=== PATIENT | male | born 1945 | race Caucasian/White ===

== ENCOUNTER 2018-07-15 17:51 | Observation (INO) | payer MEDICARE, OTHER, SELFPAY ==
[~2018-07-15] VITALS: Ht 180.3 cm; Wt 77.0 kg
[2018-07-15 18:23] LABS: BASOPHILS # (AUTO) 0.07 x10^3/uL (0-0.1); BASOPHILS % (AUTO) 1 % (0-1); EOSINOPHILS # (AUTO) 0.34 x10^3/uL (0-0.4); EOSINOPHILS % (AUTO) 4 % (1-7); LYMPHOCYTES # (AUTO) 2.47 x10^3/uL (1-3.4); LYMPHOCYTES % (AUTO) 26 % (22-44); MD NO; MEAN CORPUSCULAR HEMOGLOBIN 33.4 pg (27.5-34.5); MEAN CORPUSCULAR HGB CONC 34.2 g/dL (33.2-36.2); MEAN CORPUSCULAR VOLUME 97.6 fL (81-97); MEAN PLATELET VOLUME 7.4 fL (7.4-10.4); MONOCYTES # (AUTO) 0.64 x10^3/uL (0.2-0.8); MONOCYTES % (AUTO) 7 % (2-9); NEUTROPHILS # (AUTO) 5.81 x10^3/uL (1.8-6.8); NEUTROPHILS % (AUTO) 62 % (42-75); PLATELET COUNT 250 x10^3/uL (130-400); RED BLOOD COUNT 4.66 x10^6/uL (4.38-5.82); RED CELL DISTRIBUTION WIDTH 12.8 % (9.4-14.8)
[2018-07-15 18:31] LABS: INTERNATIONAL NORMALIZED RATIO 0.98 (0.93-1.1); PROTHROMBIN TIME 10.2 Seconds (9.6-11.5)
[2018-07-15] MEDS ORDERED: OMNIPAQUE 350 MG/ML, 100ML BOTTLE ONE (19:27)
[2018-07-15] MEDS ORDERED: ASPIRIN 325 MG TABLET PO STA (19:29)
[2018-07-15] MEDS ORDERED: ASPIRIN 325 MG TABLET ONE (19:49)
[2018-07-15] MEDS ORDERED: ONDANSETRON 4 MG TABLET PO PRN (20:30)
[2018-07-15] MEDS ORDERED: ACETAMINOPHEN 325 MG TABLET PO PRN (20:30)
[2018-07-15] MEDS ORDERED: DOCUSATE 100 MG CAPSULE PO PRN (20:30)
[2018-07-15] MEDS ORDERED: BISACODYL 10 MG SUPP PR PRN (20:30)
[2018-07-15] MEDS ORDERED: POLYETHYLENE GLYCOL 17 GM PACKET PO PRN (20:30)
[2018-07-15 20:55] VITALS: BP 126/80
[2018-07-15 20:59] LABS: FOLATE LEVEL > 20.0 ng/mL (3.1-17.5)
[2018-07-15 21:15] VITALS: BP 126/80
[2018-07-15] MEDS: ATORVASTATIN 40 MG TABLET PO SCH (21:30)
[2018-07-16 01:01] VITALS: BP 106/63
[2018-07-16 07:30] VITALS: BP 113/74
[2018-07-16 08:32] LABS: CHOL/HDL RATIO 3.3; LDL/HDL RATIO 2.1 (0.5-3.0)
[2018-07-16] MEDS ORDERED: ASPIRIN 81 MG TABLET CHEW PO/NG SCH (09:00)
[2018-07-16 13:25] VITALS: BP 117/71
[2018-07-16 19:27] VITALS: BP 127/82
[2018-07-16] MEDS: ATORVASTATIN 40 MG TABLET PO SCH (20:52)
[2018-07-17 07:40] VITALS: BP 126/75
== END 2018-07-17 11:05 | disposition home or self-care (01) ==
LOC: ED 19:48 → INTOOBSV 20:06 → EDIP 20:06 → 4WST 20:50
PROVIDERS: ADMIT Internal Medicine; ATTEND Internal Medicine
DX: G45.9 Transient cerebral ischemic attack, unspecified (principal); H53.129 Transient visual loss, unspecified eye; H54.61 Unqualified visual loss, right eye, normal vision left eye; J32.0 Chronic maxillary sinusitis; D75.89 Other specified diseases of blood and blood-forming organs; R90.82 White matter disease, unspecified; Z85.46 Personal history of malignant neoplasm of prostate; Z90.79 Acquired absence of other genital organ(s); Z91.040 Latex allergy status
CPT/HCPCS: 0399T; 36415; 70450; 70496; 70498; 70551; 80047; 80061; 82607; 82746; 85025; 85610; 85730; 93005; 93306; 93880; 97165; 99285; G0378; Q9967